=== PATIENT | female | born 1965 | race Caucasian/White ===

== ENCOUNTER → 2019-10-07 13:09 | Outpatient (POV) | payer SELFPAY | PROVIDERS: Visit Provider Nurse Practitioner Family | DX: Z00.00 Encounter for general adult medical examination without abnormal findings (principal) ==

== ENCOUNTER → 2020-06-24 13:20 | Outpatient (CLI) | payer BC, SELFPAY ==
--- NOTE | 2020-06-24 13:24 | XR_ITS ---
PROCEDURE: XR DEXA AXIAL SKELETON CLINICAL HISTORY: POST MENOPAUSAL COMPARISON: No exams were available for comparison FINDINGS: The right hip BMD is 0.697 with a T-score of -1.4. The left hip BMD is 0.715 with a T-score of -1.2. The lumbar spine BMD is 0.730 with a T-score of -2.9. IMPRESSION: This patient is considered osteoporotic according to the World Health Organization criteria. Fracture risk is high. Treatment is advised. Based on these results a follow-up exam is recommended in 1 year. Dictated by: Dhiraj Mariscal MD 06/25/2020 08:53 Dhiraj Mariscal MD in [place] 06/25/2020 08:53
== END ==
PROVIDERS: Visit Provider Family Medicine
DX: M85.80 Other specified disorders of bone density and structure, unspecified site (principal)
CPT/HCPCS: 77080

== ENCOUNTER → 2020-12-07 16:19 | Outpatient (CLI) | payer BC, SELFPAY ==
[2020-12-07 19:11] LABS: Coronavirus 19 IgG Antibody Positive (Negative); Coronavirus 19 IgM Antibody Negative (Negative)
== END ==
PROVIDERS: Visit Provider Surgery
DX: Z01.818 Encounter for other preprocedural examination (principal); Z20.822 Contact with and (suspected) exposure to COVID-19; Z12.11 Encounter for screening for malignant neoplasm of colon
CPT/HCPCS: 36415; 86328

== ENCOUNTER 2020-12-09 07:50 | Day surgery (SDC) | payer BC, SELFPAY ==
[2020-12-07 10:57] VITALS: BMI 20.9
[2020-12-09 08:14] VITALS: BP 142/77; PULSE 85; RESP 18; TEMP 36.6; O2SAT 99
[2020-12-09 08:25] VITALS: O2SAT 97
--- NOTE | 2020-12-09 08:37 | HMH.ANESCL ---
[facility] Anesthesia Checklist - Structural Data Admitted From: Home Planned Operative Procedure/s: colonoscopy Consent for Planned Operative Procedure(s) Verified: Yes - Airway Assessment C-Spine Mobility Assessed: Yes TMJ Mobility Assessed: Yes Dentition: Good Dentition - Neurological Assessment Level of Consciousness: Awake, Alert, Appropriate - Anesthesia Plan Anesthesia Risk discussed: Yes Anesthesia Plan: Verified ASA Class: II Anesthesia Type: MAC [facility] History I have reviewed the patient's past medical history: Yes Medical History: Reports:: MRSA Denies:: Cancer, Diabetes Mellitus Type 1, Diabetes Mellitus Type 2, Internal Pacemaker, Seizures *Have you ever received a pneumonia vaccine?: No *Have you received a flu vaccine this season?: No Anesthesia experience/problems:: none Other Surgeries: Yes: Dilation and Curettage, Other. No: Pacemaker Amputation: No Fractures: No - *Social History Last grade of school completed: Advanced degree Smoking Status: Current every day smoker Tobacco Type: cigarettes # Packs/Day (cigarettes): 1 Alcohol Intake: never Substance Use Type: denies use *Occupational Status:: unemployed Housing: house Household Members: spouse *Travel in the last 8 weeks: None Family Hx:: Cancer, Heart Attack
[2020-12-09 09:05] VITALS: BP 128/59; PULSE 89; RESP 18; TEMP 36.6; O2SAT 99
--- NOTE | 2020-12-09 09:06 | P.PCN_ITS ---
- Procedure: Date: 12/09/20 Patient Date of :: 1965 Procedure Performed:: Total colonoscopy to terminal ileum with biopsies Indications:: Patient is a 54-year-old female who resides in [facility]. She is referred for colonoscopy. Apparently she had undergone testing by Joe in 2018, according to her, and this was positive. She also had Hemoccult positivity. As she was previously scheduled for colonoscopy in November 2019 with gastroenterology and this was canceled due to the Covid pandemic. Patient states that she very rarely sees visible blood. She has no known family history of colon cancer. Performing Provider:: Torres Wilcox MD Referring Provider:: Colton Prado Sedation:: MAC sedation Procedure:: Patient was taken to endoscopy procedure. She was positioned in lateral decubitus position. Adequate intravenous sedation was achieved with anesthesia titration of propofol. Variable stiffness Olympus colonoscope was inserted via the anus. Was advanced to the cecum. There was some particulate liquid stool within the colon. Ileocecal valve and appendiceal orifice were clearly identified. Colonoscope was advanced a short distance into the terminal ileum which appeared grossly normal. Colonoscope was withdrawn through the colon with careful surveillance. There were a few rare diverticuli within the sigmoid co mendez. There were several probable hyperplastic appearing polyps in the rectosigmoid and these were biopsied with cold biopsy forceps. Retroflexion within the rectum revealed no evidence of any obvious pathologic internal hemorrhoids although she did have some minor hemorrhoidal irritation. Colonoscope was withdrawn. Findings:: Probable hyperplastic polyps Very rare diverticuli Recommendations:: Follow-up on histopathology. Polyps likely benign and non-adenomatous. Likely repeat colonoscopy 5 years since this was initial screening colonoscopy. Complications:: None Estimated blood obtained (mL): 2
[2020-12-09 09:15] VITALS: BP 117/64; PULSE 80; RESP 18; O2SAT 95
[2020-12-09 09:25] VITALS: BP 135/47; PULSE 83; RESP 18; O2SAT 97
[2020-12-09 09:35] VITALS: BP 136/50; PULSE 86; RESP 18; O2SAT 98
== END 2020-12-09 09:35 | disposition home or self-care (01) ==
LOC: OUTP 07:54
PROVIDERS: PCP Family Medicine; Visit Provider Surgery
PROC: 0DJD8ZZ Inspection of Lower Intestinal Tract, Via Natural or Artificial Opening Endoscopic (ICD-10-PCS; CPT 45380; principal; 2020-12-09 08:30)
DX: K63.5 Polyp of colon (principal); K57.30 Diverticulosis of large intestine without perforation or abscess without bleeding; Z12.11 Encounter for screening for malignant neoplasm of colon; Z86.14 Personal history of Methicillin resistant Staphylococcus aureus infection; F41.9 Anxiety disorder, unspecified; Z72.0 Tobacco use; Z79.899 Other long term (current) drug therapy; Z82.3 Family history of stroke; Z80.9 Family history of malignant neoplasm, unspecified
CPT/HCPCS: 45380